=== PATIENT | male | born 1980 | race Caucasian/White ===

== ENCOUNTER 2016-12-30 10:14 | Inpatient (IN) | payer MEDICAID, OTHER ==
[~2016-12-30] VITALS: Ht 177.8 cm; Wt 72.0 kg
[~2016-12-30 10:14] MED LIST: ACET-1757 PO; ALBU8.5H5 INH; ALBU8.5H8 INH; CEFU500T PO; CIPR500T87 PO; DOXY100C2 PO; FLUT1BLS INH; FLUT1DIS3 INH; GUAI5SYR PO; LEVO500T47 PO; METH4TAB2 PO; MONT10TA9 PO; PRED10TA PO
[2016-12-30] MEDS ORDERED: SODIUM CHLORIDE 0.9% 1,000ML IVBOLUS ONE ×2 (10:30)
[2016-12-30] MEDS ORDERED: methylPREDNISolone SOD SUCC 125 MG/2 ML ONE (10:30)
[2016-12-30] MEDS ORDERED: SODIUM CHLORIDE FLUSH 10ML SYR IVF ONE (10:30)
[2016-12-30] MEDS ORDERED: ALBUTEROL/IPRATROPIUM 2.5MG/0.5MG, 3 ML NPPB ONE (10:30)
[2016-12-30] MEDS ORDERED: CEFTRIAXONE PMX 1GM/50ML 50 ML IVPB ONE (10:30)
[2016-12-30] MEDS ORDERED: methylPREDNISolone SOD SUCC 125 MG/2 ML IVP ONE (10:30)
[2016-12-30] MEDS ORDERED: ALBUTEROL/IPRATROPIUM 2.5MG/0.5MG, 3 ML ONE (10:38)
[2016-12-30] MEDS ORDERED: ALBUTEROL SULFATE 2.5 MG/3 ML ONE ×2 (10:46→13:10)
[2016-12-30 10:54] LABS: HEMATOCRIT 44.7 % (39.2-51.8); HEMOGLOBIN 15.1 g/dL (13.7-18.0); WHITE BLOOD COUNT 12.8 x10^3/uL (3.4-10)
[2016-12-30] MEDS ORDERED: ALBUTEROL SULFATE 2.5 MG/3 ML NPPB ONE (11:00)
[2016-12-30 11:01] LABS: BLOOD UREA NITROGEN 18 mg/dL (7-18)
[2016-12-30] MEDS ORDERED: CEFTRIAXONE PMX 1GM/50ML 50 ML ONE (11:12)
[2016-12-30] MEDS ORDERED: ONDANSETRON ODT 4 MG PO PRN (14:00)
[2016-12-30] MEDS ORDERED: LABETALOL 5MG/ML, 20ML IVPush PRN (14:00)
[2016-12-30] MEDS ORDERED: POLYETHYLENE GLYCOL 17 GM PACKET PO PRN (14:00)
[2016-12-30] MEDS ORDERED: ONDANSETRON 2MG/ML, 2ML IVPush PRN (14:00)
[2016-12-30] MEDS ORDERED: morphine SULFATE 10 MG/ML, 1ML IVPush PRN (14:00)
[2016-12-30 14:15] VITALS: BP 110/66
[2016-12-30] MEDS: ALBUTEROL/IPRATROPIUM 2.5MG/0.5MG, 3 ML NPPB SCH ×2 (15:00→20:35)
[2016-12-30] MEDS ORDERED: ALBUTEROL SULFATE 2.5 MG/3 ML NPPB PRN (15:00)
[2016-12-30] MEDS: SODIUM CHLORIDE 0.9% 1,000 ML IV SCH (16:23)
[2016-12-30] MEDS: methylPREDNISolone SOD SUCC 125 MG/2 ML IVPush SCH ×2 (16:23→21:50)
[2016-12-30 19:17] VITALS: BP 102/55
[2016-12-30] MEDS: ENOXAPARIN 40 MG/0.4 ML SQ SCH (21:00)
[2016-12-31 02:45] VITALS: BP 125/64
[2016-12-31] MEDS: SODIUM CHLORIDE 0.9% 1,000 ML IV SCH ×2 (03:48→16:56)
[2016-12-31] MEDS: methylPREDNISolone SOD SUCC 125 MG/2 ML IVPush SCH ×4 (03:49→22:29)
[2016-12-31] MEDS: ALBUTEROL/IPRATROPIUM 2.5MG/0.5MG, 3 ML NPPB SCH ×4 (06:33→20:00)
[2016-12-31 08:06] VITALS: BP 122/60
[2016-12-31] MEDS: SENNA/DOCUSATE TABLET PO SCH (09:00)
[2016-12-31 10:23] LABS: HEMATOCRIT 38.4 % (39.2-51.8); WHITE BLOOD COUNT 23.6 x10^3/uL (3.4-10)
[2016-12-31 10:28] LABS: BLOOD UREA NITROGEN 14 mg/dL (7-18)
[2016-12-31] MEDS: MONTELUKAST 10 MG TABLET PO SCH (11:05)
[2016-12-31] MEDS: FLUTICASONE/VILANTEROL 200-25MCG/INH INH SCH (11:05)
[2016-12-31 11:11] LABS: DIFF TOTAL CELLS COUNTED 100 CELL DIFF
[2016-12-31 11:12] LABS: VERIFY COUNTS? YES
[2016-12-31 12:37] VITALS: BP 105/52
[2016-12-31] MEDS ORDERED: OMNIPAQUE 350 MG/ML, 100ML BOTTLE ONE (14:48)
[2016-12-31 19:05] VITALS: BP 130/61
[2016-12-31] MEDS: GUAIFENESIN/DM 200-20MG, 10ML UDC PO PRN (19:53)
[2016-12-31] MEDS: ENOXAPARIN 40 MG/0.4 ML SQ SCH (21:53)
[2017-01-01 02:51] VITALS: BP 117/64
[2017-01-01] MEDS: methylPREDNISolone SOD SUCC 125 MG/2 ML IVPush SCH (05:12)
[2017-01-01 05:14] LABS: HEMATOCRIT 38.4 % (39.2-51.8); WHITE BLOOD COUNT 22.3 x10^3/uL (3.4-10)
[2017-01-01 05:30] LABS: BLOOD UREA NITROGEN 18 mg/dL (7-18)
[2017-01-01] MEDS: GUAIFENESIN/DM 200-20MG, 10ML UDC PO PRN ×2 (06:05→13:59)
[2017-01-01 07:07] VITALS: BP 114/68
[2017-01-01] MEDS: ALBUTEROL/IPRATROPIUM 2.5MG/0.5MG, 3 ML NPPB SCH ×4 (08:30→18:52)
[2017-01-01] MEDS: SODIUM CHLORIDE 0.9% 1,000 ML IV SCH (09:14)
[2017-01-01] MEDS: SENNA/DOCUSATE TABLET PO SCH (09:16)
[2017-01-01] MEDS: predniSONE 50MG TABLET PO SCH (09:22)
[2017-01-01] MEDS: MONTELUKAST 10 MG TABLET PO SCH (09:22)
[2017-01-01] MEDS: FLUTICASONE/VILANTEROL 200-25MCG/INH INH SCH (09:22)
[2017-01-01 13:04] VITALS: BP 109/60
[2017-01-01 18:58] VITALS: BP 128/67
[2017-01-01] MEDS: ENOXAPARIN 40 MG/0.4 ML SQ SCH (21:00)
[2017-01-02 01:21] VITALS: BP 135/81
[2017-01-02 05:05] LABS: BLOOD UREA NITROGEN 25 mg/dL (7-18); HEMATOCRIT 38.4 % (39.2-51.8); HEMOGLOBIN 12.8 g/dL (13.7-18.0); WHITE BLOOD COUNT 15.4 x10^3/uL (3.4-10)
[2017-01-02] MEDS: ALBUTEROL/IPRATROPIUM 2.5MG/0.5MG, 3 ML NPPB SCH ×4 (07:00→20:20)
[2017-01-02] MEDS: SENNA/DOCUSATE TABLET PO SCH (08:31)
[2017-01-02] MEDS: FLUTICASONE/VILANTEROL 200-25MCG/INH INH SCH (08:32)
[2017-01-02] MEDS: MONTELUKAST 10 MG TABLET PO SCH (08:32)
[2017-01-02] MEDS: predniSONE 50MG TABLET PO SCH (08:32)
[2017-01-02 09:23] VITALS: BP 120/72
[2017-01-02 15:32] VITALS: BP 118/73
[2017-01-02 19:05] VITALS: BP 128/80
[2017-01-02] MEDS: ENOXAPARIN 40 MG/0.4 ML SQ SCH (19:44)
[2017-01-03 00:18] VITALS: BP 123/73
[2017-01-03 04:41] LABS: HEMATOCRIT 40.3 % (39.2-51.8); HEMOGLOBIN 13.4 g/dL (13.7-18.0); WHITE BLOOD COUNT 11.9 x10^3/uL (3.4-10)
[2017-01-03 04:53] LABS: BLOOD UREA NITROGEN 30 mg/dL (7-18)
[2017-01-03 04:58] LABS: ASPARTATE AMINO TRANSFERASE 38 U/L (15-37)
[2017-01-03 07:30] VITALS: BP 132/78
[2017-01-03] MEDS: ALBUTEROL/IPRATROPIUM 2.5MG/0.5MG, 3 ML NPPB SCH (08:04)
[2017-01-03] MEDS: SENNA/DOCUSATE TABLET PO SCH (09:00)
[2017-01-03] MEDS: predniSONE 50MG TABLET PO SCH (09:06)
[2017-01-03] MEDS: FLUTICASONE/VILANTEROL 200-25MCG/INH INH SCH (09:19)
[2017-01-03] MEDS: MONTELUKAST 10 MG TABLET PO SCH (09:19)
[2017-01-03] MEDS ORDERED: PRED50TA PO (11:32)
== END 2017-01-03 12:10 | disposition home or self-care (01) | DRG 189 ==
LOC: ED 13:00 → EDIP 13:01 → 3NW 13:50 → ED 14:03
PROVIDERS: ADMIT Hospitalist; ATTEND Hospitalist
DX: J96.01 Acute respiratory failure with hypoxia (principal); J44.1 Chronic obstructive pulmonary disease with (acute) exacerbation; J45.41 Moderate persistent asthma with (acute) exacerbation; J98.11 Atelectasis; Z87.891 Personal history of nicotine dependence
CPT/HCPCS: 36415; 71010; 71275; 80048; 80053; 81003; 82040; 83605; 84145; 85025; 85379; 87040; 93005; 94640; 96361; 96365; 96375; J0696; J7613; J7620; Q9967; J2930; J7030; J7512

== ENCOUNTER 2017-01-23 05:55 | Emergency (ER) | payer MEDICAID ==
[~2017-01-23] VITALS: Ht 188 cm; Wt 73.0 kg
[~2017-01-23 05:55] MED LIST changes: +PRED50TA PO
[2017-01-23] MEDS ORDERED: ALBUTEROL/IPRATROPIUM 2.5MG/0.5MG, 3 ML NPPB ONE (06:00)
[2017-01-23] MEDS ORDERED: ALBUTEROL/IPRATROPIUM 2.5MG/0.5MG, 3 ML ONE (06:18)
[2017-01-23] MEDS ORDERED: ALBUTEROL SULFATE 2.5 MG/3 ML ONE (06:32)
[2017-01-23 06:59] VITALS: BP 106/79
[2017-01-23] MEDS ORDERED: ALBUTEROL SULFATE 2.5 MG/3 ML NPPB ONE (07:00)
== END 2017-01-23 07:39 | disposition home or self-care (01) ==
LOC: ED 07:09
DX: J45.51 Severe persistent asthma with (acute) exacerbation (principal); J44.1 Chronic obstructive pulmonary disease with (acute) exacerbation; Z76.0 Encounter for issue of repeat prescription; Z87.891 Personal history of nicotine dependence
CPT/HCPCS: 71020; 93005; 94640; 99284; J7512; J7613; J7620

== ENCOUNTER 2017-02-10 01:02 | Emergency (ER) | payer MEDICAID ==
[~2017-02-10] VITALS: Ht 188 cm; Wt 72.0 kg
[2017-02-10] MEDS ORDERED: ALBUTEROL/IPRATROPIUM 2.5MG/0.5MG, 3 ML ONE (01:15)
[2017-02-10] MEDS ORDERED: ALBUTEROL/IPRATROPIUM 2.5MG/0.5MG, 3 ML NPPB PRN (01:30)
[2017-02-10] MEDS ORDERED: ALBUTEROL/IPRATROPIUM 2.5MG/0.5MG, 3 ML NPPB ONE (01:30)
[2017-02-10 02:33] VITALS: BP 105/76
== END 2017-02-10 02:50 | disposition home or self-care (01) ==
LOC: ED 01:22
DX: J45.41 Moderate persistent asthma with (acute) exacerbation (principal); Z59.0 Homelessness
CPT/HCPCS: 93005; 94640; 99283; J7512; J7620

== ENCOUNTER 2017-11-26 16:02 | Emergency (ER) | payer MEDICAID ==
[~2017-11-26] VITALS: Ht 188 cm; Wt 75.0 kg
[2017-11-26] MEDS ORDERED: ALBUTEROL/IPRATROPIUM 2.5MG/0.5MG, 3 ML ONE (16:19)
[2017-11-26] MEDS ORDERED: IPRATROPIUM 0.5 MG/2.5 ML INHA NPPB ONE (16:30)
[2017-11-26] MEDS: ALBUTEROL SULFATE 2.5 MG/3 ML NPPB SCH ×2 (16:32→16:41)
[2017-11-26 16:44] LABS: BASOPHILS # (AUTO) 0.06 x10^3/uL (0-0.1); BASOPHILS % (AUTO) 1 % (0-1); EOSINOPHILS # (AUTO) 0.34 x10^3/uL (0-0.4); EOSINOPHILS % (AUTO) 5 % (1-7); LYMPHOCYTES # (AUTO) 2.67 x10^3/uL (1-3.4); LYMPHOCYTES % (AUTO) 36 % (22-44); MD NO; MEAN CORPUSCULAR HEMOGLOBIN 31.2 pg (27.5-34.5); MEAN CORPUSCULAR HGB CONC 33.9 g/dL (33.2-36.2); MEAN PLATELET VOLUME 8.1 fL (7.4-10.4); MONOCYTES # (AUTO) 0.51 x10^3/uL (0.2-0.8); MONOCYTES % (AUTO) 7 % (2-9); NEUTROPHILS # (AUTO) 3.87 x10^3/uL (1.8-6.8); NEUTROPHILS % (AUTO) 52 % (42-75); PLATELET COUNT 237 x10^3/uL (130-400); RED BLOOD COUNT 4.87 x10^6/uL (4.38-5.82); RED CELL DISTRIBUTION WIDTH 13.5 % (9.4-14.8)
[2017-11-26 16:52] LABS: ALBUMIN 3.4 g/dL (3.4-5.0); ANION GAP 6 mmol/L (5-15); CALCIUM 8.9 mg/dL (8.5-10.1); CHLORIDE 106 mmol/L (98-107); CREATININE 0.89 mg/dL (0.7-1.3)
[2017-11-26 17:31] VITALS: BP 105/70
== END 2017-11-26 18:19 | disposition other institution (70) ==
LOC: ED 18:13
DX: J45.41 Moderate persistent asthma with (acute) exacerbation (principal); J44.1 Chronic obstructive pulmonary disease with (acute) exacerbation; R50.9 Fever, unspecified; Z72.9 Problem related to lifestyle, unspecified; Z91.14 Patient's other noncompliance with medication regimen
CPT/HCPCS: 36415; 71045; 80048; 82040; 85025; 93005; 94640; 99285; J7512; J7613; J7644